=== PATIENT | female | born 1955 | race Two or more races ===

== ENCOUNTER → 2018-09-20 | Outpatient (CLI) | payer OTHER ==
[~2018-09-20] MED LIST: INDAPAMIDE1.25 MG; LEVSIN/SL0.125 MG SL; RE CHLORDIAZEP1 EACH PO
== END | disposition home or self-care (01) ==
LOC: MAMO-SONO 11:15
DX: R92.1 Mammographic calcification found on diagnostic imaging of breast (principal); N60.11 Diffuse cystic mastopathy of right breast; N60.12 Diffuse cystic mastopathy of left breast; Z12.31 Encounter for screening mammogram for malignant neoplasm of breast

== ENCOUNTER → 2019-03-07 | Outpatient (CLI) | payer OTHER | END | disposition home or self-care (01) | LOC: NUCLEAR 15:01 | DX: I87.2 Venous insufficiency (chronic) (peripheral) (principal); I73.9 Peripheral vascular disease, unspecified ==

== ENCOUNTER 2019-03-09 14:13 | Outpatient (CLI) | payer OTHER | END 2019-03-09 14:26 | disposition home or self-care (01) | LOC: NUCLEAR 14:13 | DX: I73.9 Peripheral vascular disease, unspecified (principal); I82.492 Acute embolism and thrombosis of other specified deep vein of left lower extremity; M54.32 Sciatica, left side ==

== ENCOUNTER → 2019-03-09 | Outpatient (CLI) | payer OTHER | END | disposition home or self-care (01) | LOC: MRI 13:20 | DX: M51.36 Other intervertebral disc degeneration, lumbar region (principal); M54.30 Sciatica, unspecified side | CPT/HCPCS: 72148 ==

== ENCOUNTER → 2019-06-14 | Outpatient (CLI) | payer OTHER | END | disposition home or self-care (01) | LOC: RAD 11:36 | DX: Q67.5 Congenital deformity of spine (principal) ==

== ENCOUNTER 2019-07-25 13:43 | Outpatient (CLI) | payer OTHER | END 2019-07-25 13:58 | disposition home or self-care (01) | LOC: NUCLEAR 13:43 | DX: M81.0 Age-related osteoporosis without current pathological fracture (principal); M48.061 Spinal stenosis, lumbar region without neurogenic claudication; Q67.5 Congenital deformity of spine; M51.17 Intervertebral disc disorders with radiculopathy, lumbosacral region ==

== ENCOUNTER 2019-09-10 14:42 | Outpatient (CLI) | payer OTHER | END 2019-09-10 14:51 | disposition home or self-care (01) | LOC: RAD 14:42 | DX: M41.85 Other forms of scoliosis, thoracolumbar region (principal); M41.82 Other forms of scoliosis, cervical region ==

== ENCOUNTER 2020-02-28 14:28 | Outpatient (CLI) | payer OTHER | END 2020-02-28 14:30 | disposition home or self-care (01) | LOC: RAD 14:28 | PROVIDERS: ATTEND Orthopaedic Surgery Orthopaedic Surgery of the Spine | DX: M48.061 Spinal stenosis, lumbar region without neurogenic claudication (principal) ==

== ENCOUNTER → 2020-05-14 | Outpatient (CLI) | payer OTHER | END | disposition home or self-care (01) | LOC: MAMO-SONO 13:45 | PROVIDERS: ATTEND Specialist | DX: R92.1 Mammographic calcification found on diagnostic imaging of breast (principal); Z12.31 Encounter for screening mammogram for malignant neoplasm of breast ==

== ENCOUNTER → 2020-05-27 | Outpatient (CLI) | payer OTHER | END | disposition home or self-care (01) | LOC: RAD 09:48 | DX: M54.5 Low back pain (principal); M48.061 Spinal stenosis, lumbar region without neurogenic claudication ==

== ENCOUNTER 2020-11-20 15:38 | Outpatient (CLI) | payer OTHER | END 2020-11-20 15:41 | disposition home or self-care (01) | LOC: RAD 15:38 | PROVIDERS: ATTEND Orthopaedic Surgery Orthopaedic Surgery of the Spine | DX: M48.061 Spinal stenosis, lumbar region without neurogenic claudication (principal) ==

== ENCOUNTER 2021-08-05 14:03 | Outpatient (CLI) | payer OTHER | END 2021-08-05 14:06 | disposition home or self-care (01) | LOC: MAMO-SONO 14:03 | PROVIDERS: ATTEND Specialist | DX: R92.0 Mammographic microcalcification found on diagnostic imaging of breast (principal) ==

== ENCOUNTER 2021-10-08 08:00 | Outpatient (CLI) | payer OTHER | END 2021-10-08 08:30 | disposition home or self-care (01) | LOC: PPH VACUNA 08:00 | PROVIDERS: ATTEND Emergency Medicine Pediatric Emergency Medicine | DX: Z23 Encounter for immunization (principal) ==

== ENCOUNTER 2022-11-25 12:20 | Outpatient (CLI) | payer OTHER | END 2022-11-25 12:33 | disposition home or self-care (01) | LOC: RAD 12:20 | PROVIDERS: ATTEND Orthopaedic Surgery | DX: M25.571 Pain in right ankle and joints of right foot (principal); M79.644 Pain in right finger(s) ==

== ENCOUNTER 2023-01-27 13:05 | Outpatient (CLI) | payer OTHER | END 2023-01-27 13:06 | disposition home or self-care (01) | LOC: NUCLEAR 13:05 | PROVIDERS: ATTEND Orthopaedic Surgery | DX: M81.0 Age-related osteoporosis without current pathological fracture (principal) ==

== ENCOUNTER 2023-02-14 12:24 | Outpatient (CLI) | payer OTHER | END 2023-02-14 12:27 | disposition home or self-care (01) | LOC: MAMO-SONO 12:24 | PROVIDERS: ATTEND Specialist | DX: Z12.31 Encounter for screening mammogram for malignant neoplasm of breast (principal); R92.1 Mammographic calcification found on diagnostic imaging of breast ==

== ENCOUNTER 2023-03-04 10:59 | Outpatient (CLI) | payer OTHER | END 2023-03-04 11:01 | disposition home or self-care (01) | LOC: LAB 10:59 | PROVIDERS: ATTEND Orthopaedic Surgery | DX: E55.9 Vitamin D deficiency, unspecified (principal); E56.1 Deficiency of vitamin K; M85.9 Disorder of bone density and structure, unspecified; Z88.0 Allergy status to penicillin; Z88.6 Allergy status to analgesic agent; Z91.041 Radiographic dye allergy status; Z91.018 Allergy to other foods; Z91.013 Allergy to seafood ==

== ENCOUNTER → 2023-09-13 08:41 | Outpatient (CLI) | payer OTHER ==
[2023-09-13 09:42] LABS: URINE APPEARANCE Clear; URINE BILIRRUBIN Negative (NEGATIVE); URINE BLOOD Negative; URINE COLOR Yellow; URINE GLUCOSE Negative (NEGATIVE); URINE LEUKOCYTE Small; URINE NITRATE Negative; URINE PROTEIN 30 (NEGATIVE); URINE UROBILINOGEN 0.2 E.U./dl
[2023-09-13 09:45] LABS: URINE BACTERIA 42.8 uL (0.0-1933); URINE EPITHELIAL CELLS 6.3 uL (0.0-38.8); URINE RBC 11.9 uL (0.0-20.8)
[2023-09-13 09:50] LABS: HEMATOCRIT 38.1 % (36.0-45.00); HEMOGLOBIN 12.7 g/dL (12.0-15.00); MEAN CELL VOLUME 87.6 fL (80.00-100.00); MEAN CORPUSCULAR HEMOGLOBIN 29.3 pg (27.00-32.0); MEAN CORPUSCULAR HGB CONC 33.4 g/dl (32.0-36.0); PLATELET COUNT 178 K/uL (150-450); RED BLOOD COUNT 4.35 M/uL (4.00-6.00); RED CELL DISTRIBUTION WIDTH 14.5 % (11.5-14.5)
[2023-09-13 10:31] LABS: ALBUMIN 3.9 gm/dL (3.4-5.0); BILIRUBIN TOTAL 0.43 mg/dL (0.3-1.2); CREATININE SERUM 0.73 mg/dL (0.55-1.02); GFR 79.28; GLOBULINA 2.8 G/DL (2.4-3.5); POTASSIUM 4.33 mEq/L (3.5-5.1); T4 TOTAL 10.12 UG/DL (4.8-13.9); TOTAL PROTEIN 6.7 gm/dL (6.4-8.2); TSH 3.17 uIU/mL (0.358-3.74)
[2023-09-13 10:37] LABS: VITAMIN D3 25 HYDROXY 45.82 ng/ml (30-120)
== END | disposition home or self-care (01) ==
LOC: LAB 08:41
PROVIDERS: ATTEND Internal Medicine Cardiovascular Disease
DX: I10 Essential (primary) hypertension (principal); E11.9 Type 2 diabetes mellitus without complications; E03.9 Hypothyroidism, unspecified; E78.2 Mixed hyperlipidemia; E55.9 Vitamin D deficiency, unspecified

== ENCOUNTER 2024-08-28 09:00 | Outpatient (CLI) | payer OTHER | END 2024-08-29 15:41 | disposition home or self-care (01) | LOC: MAMO-SONO 09:00 | PROVIDERS: ATTEND Specialist | DX: R92.0 Mammographic microcalcification found on diagnostic imaging of breast (principal); Z12.31 Encounter for screening mammogram for malignant neoplasm of breast ==

== ENCOUNTER 2024-09-13 13:56 | Outpatient (CLI) | payer OTHER | END 2024-09-13 13:58 | disposition home or self-care (01) | LOC: RAD 13:56 | PROVIDERS: ATTEND Orthopaedic Surgery | DX: M79.642 Pain in left hand (principal) ==

== ENCOUNTER → 2024-09-25 | Outpatient (CLI) | payer OTHER | END | disposition home or self-care (01) | LOC: RAD 13:27 | PROVIDERS: ATTEND Orthopaedic Surgery | DX: S63.592D Other specified sprain of left wrist, subsequent encounter (principal); M24.542 Contracture, left hand; M79.642 Pain in left hand; M18.12 Unilateral primary osteoarthritis of first carpometacarpal joint, left hand | CPT/HCPCS: 73221 ==

== ENCOUNTER 2024-12-17 12:57 | Outpatient (CLI) | payer OTHER | END 2024-12-17 13:24 | disposition home or self-care (01) | LOC: EKG 12:57 | PROVIDERS: ATTEND Internal Medicine Nephrology | DX: I10 Essential (primary) hypertension (principal) ==

== ENCOUNTER 2024-12-18 13:05 | Outpatient (CLI) | payer OTHER | END 2024-12-18 13:08 | disposition home or self-care (01) | LOC: RAD 13:05 | PROVIDERS: ATTEND Orthopaedic Surgery Hand Surgery | DX: Z01.810 Encounter for preprocedural cardiovascular examination (principal) ==